=== PATIENT | male | born 1970 | race Two or more races ===

== ENCOUNTER 2019-05-09 00:16 | Emergency (ER) | payer SELFPAY ==
--- NOTE | 2019-05-09 02:17 | ER Document Report ---
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 courtney, cp, x 1 wk along with some neck pain. pain worse with movement. better with rest. no rall or trauma. 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 not worst courtney of life. not sudden in onset. has had similar courtney in the past. hasn't sought care until now. no changes in neurologic. no fevers. Pt denies any prior personal cardiac history. denies any family history of sudden or cardiac dz at a young age. no syncope. no palpitations. no hx of mi, cva, tia, or cad. no ripping or tearing sensation. denies any blood thinners. No prior history of blood clots. No recent long distance travel/immobilization, recent surgery, exogenous hormone use, hemoptysis, history of cancer, or calf pain/swelling. No prior history of arrhythmias. - ROS Systems Reviewed and Negative: Yes All other systems reviewed and negative - to include 10 systems, unless mentioned in the hpi. - DERM Skin Color: Normal Past Medical History - Social History Smoking Status: Never Smoker Family History: Reviewed & Not Pertinent Patient has suicidal ideation: No Patient has homicidal ideation: No Vertical Provider Document - CONSTITUTIONAL Notes: >>>> PHYSICAL_EXAM: GENERAL_APPEARANCE: well_nourished, alert, cooperative, no_acute_distress, no_obvious_discomfort. pleasant, smiling, speaking in full sentences, in no sign of pain or resp distress, VITALS: reviewed, see vital signs table. HEAD: no_swelling\tenderness on the head. normocephalic. atraumatic. no toney signs. no raccoons eyes. EARS: canals_clear_bilat, TMs_clear. EYES: PERRL, EOMI, conjunctiva_clear. no photophobia NOSE: no_nasal_discharge. MOUTH: (-)decreased moisture. THROAT: no_tonsilar_inflammation, no_airway_obstruction. no_lymphadenopathy NECK: supple, no_neck_tenderness other than over bilat paracervical muskulature, spasm noted. palpation here reproduces pts neck pain. no sign of central cord syndrome. no overlying skin changes, (-)thyromegaly. full rom. full strength. no jvd. no meningeal signs. BACK: no_back_tenderness. CHEST_WALL: no_chest_tenderness. no overlying skin changes LUNGS: no_wheezing, ctab (-)accessory muscle use, good air exchange bilatera l. HEART: normal_rate, normal_rhythm, no_murmur, ABDOMEN: normal_BS, soft, no_abd_tenderness, (-)guarding, (-)rebound, no_organomegaly, no distension or peritoneal signs. no cva ttp EXTREMITIES: strength 5/5 in all_extremities, good pulses in all_extremities, no_swelling\tenderness in the extremities, no_edema. full rom. normal gait. good pulses. brisk cap refill. 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 neg nolan sign NEURO: motor and sensation intact, cranial nerves 2-12 intact, cerebellar fxn intact SKIN: warm, dry, good_color, no_rash. MENTAL_STATUS: speech_clear, oriented_X_3, normal_affect, responds_ appropriately to questions. Course - Re-evaluation Re-evalutation: 05/09/19 06:44 labs neg. cxr neg per rad and reviewed by myself. ekg unremarkable per ed attending. heart score is a 2. he is perc neg. low risk for sah. no meningeal signs. no signs of central cord syndrome. neurononfocal. delta trop neg. On reexam, pt improved with tx listed. remained stable. nontoxic. well appearing. pain controlled. tolerating po. requesting to go home. Documentation achieved through voice recording which may lead to some occasiona l accidental typographical errors. Extensive efforts have been made to proof read documentation to make sure these are the least as possible. Category Date Time Status EKG Documentation ONCE Care 05/09/19 04:24 Completed EKG Documentation STAT Care 05/09/19 00:18 Completed EKG Documentation STAT Care 05/09/19 04:05 Completed CHEST 2 VIEWS [RAD] Stat Exams 05/09/19 02:14 Completed ALCOHOL [CHEM] Stat Lab 05/09/19 02:25 Completed CBC WITH DIFF [HEME] Stat Lab 05/09/19 02:25 Completed COMPREHENSIVE METABOLIC PANEL [CHEM] Stat Lab 05/09/19 02:25 Completed CREATINE KINASE MB [CHEM] Stat Lab 05/09/19 02:25 Completed CREATINE KINASE [CHEM] Stat Lab 05/09/19 02:25 Completed LIPASE [CHEM] Stat Lab 05/09/19 02:25 Completed MAGNESIUM [CHEM] Stat Lab 05/09/19 02:25 Completed PARTIAL THROMBOPLASTIN TIME [COAG] Stat Lab 05/09/19 03:50 Completed PROTHROMBIN TIME/INR [COAG] Stat Lab 05/09/19 03:50 Completed TROPONIN I [CHEM] Stat Lab 05/09/19 02:25 Completed TROPONIN I [CHEM] Timed Lab 05/09/19 04:29 Completed URINALYSIS [URIN] Stat Lab 05/09/19 02:20 Completed URINE CULTURE [MC] Stat Lab 05/09/19 02:20 Received Ketorolac Tromethamine [Toradol Inj/Pf 30 mg/1 ml Sdv] Med 05/09/19 04:06 Discontinued 30 mg IV NOW ONE EKG ER ONLY [ER] Stat Oth 05/09/19 Active EKG ER ONLY [ER] Stat Oth 05/09/19 Active - Vital Signs Vital signs: Temp Pulse Resp BP Pulse Ox 98 F 62 12 133/92 H 100 05/09/19 01:48 05/09/19 01:40 05/09/19 01:48 05/09/19 01:48 05/09/19 01:48 05/09/19 06:42 Temp Pulse Resp BP BP Pulse Ox 05/09/19 05:01 17 98 05/09/19 05:00 97.9 F 13 113/77 97 05/09/19 04:59 14 97 05/09/19 04:01 13 97 05/09/19 04:00 14 126/81 H 97 05/09/19 03:59 12 97 05/09/19 03:01 15 97 05/09/19 03:00 14 128/75 H 98 05/09/19 02:59 13 97 05/09/19 02:33 14 125/83 98 05/09/19 02:32 13 97 05/09/19 02:01 15 97 05/09/19 02:00 15 126/81 H 98 05/09/19 01:59 16 97 05/09/19 01:48 98 F 12 133/92 H 100 05/09/19 01:47 15 98 05/09/19 01:44 99 05/09/19 01:40 62 05/09/19 00:22 98.1 F 61 18 140/103 H 97 - Laboratory Result Diagrams: 05/09/19 02:25 05/09/19 02:25 Laboratory results interpreted by me: 05/09/19 06:42 Labs- Entire Visit 05/09/19 05/09/19 05/09/19 02:20 02:25 02:25 WBC 6.9 RBC 5.10 Hgb 14.8 Hct 43.0 MCV 84 MCH 29.0 MCHC 34.3 RDW 12.8 Plt Count 227 Lymph % (Auto) 28.9 [place] % (Auto) 7.4 Eos % (Auto) 5.8 Baso % (Auto) 0.5 Absolute Neuts (auto) 4.0 Absolute Lymphs (auto) 2.0 Absolute Monos (auto) 0.5 Absolute Eos (auto) 0.4 Absolute Basos (auto) 0.0 Seg Neutrophils % 57.4 PT INR APTT Sodium 139.7 Potassium 3.9 Chloride 106 Carbon Dioxide 26 Anion Gap 8 BUN 20 Creatinine 0.77 Est GFR ( Amer) > 60 Est GFR (MDRD) Non-Af > 60 Glucose 99 Calcium 9.3 Magnesium Total Bilirubin 0.6 Direct Bilirubin 0.1 Neonat Total Bilirubin Not Reportable Neonat Direct Bilirubin Not Reportable Neonat Indirect Bili Not Reportable AST 23 ALT 24 Alkaline Phosphatase 78 Creatine Kinase CK-MB (CK-2) Troponin I Total Protein 6.8 Albumin 4.1 Lipase Urine Color YELLOW Urine Appearance CLEAR Urine pH 5.0 Ur Specific [place] 1.025 Urine Protein NEGATIVE Urine Glucose (UA) NEGATIVE Urine Ketones NEGATIVE Urine Blood NEGATIVE Urine Nitrite NEGATIVE Urine Bilirubin NEGATIVE Urine Urobilinogen NEGATIVE Ur Leukocyte Esterase NEGATIVE Urine WBC (Auto) >182 Urine RBC (Auto) 32 Urine Bacteria (Auto) TRACE Squamous Epi Cells Auto <1 Urine Mucus (Auto) RARE Urine Ascorbic Acid NEGATIVE Serum Alcohol 05/09/19 05/09/19 05/09/19 02:25 02:25 03:50 WBC RBC Hgb Hct MCV MCH MCHC RDW Plt Count Lymph % (Auto) [place] % (Auto) Eos % (Auto) Baso % (Auto) Absolute Neuts (auto) Absolute Lymphs (auto) Absolute Monos (auto) Absolute Eos (auto) Absolute Basos (auto) Seg Neutrophils % PT 14.6 INR 1.13 APTT 39.6 H Sodium Potassium Chloride Carbon Dioxide Anion Gap BUN Creatinine Est GFR ( Amer) Est GFR (MDRD) Non-Af Glucose Calcium Magnesium 1.9 Total Bilirubin Direct Bilirubin Neonat Total Bilirubin Neonat Direct Bilirubin Neonat Indirect Bili AST ALT Alkaline Phosphatase Creatine Kinase 77 CK-MB (CK-2) 0.64 Troponin I < 0.012 Total Protein Albumin Lipase 105.0 Urine Color Urine Appearance Urine pH Ur Specific [place] Urine Protein Urine Glucose (UA) Urine Ketones Urine Blood Urine Nitrite Urine Bilirubin Urine Urobilinogen Ur Leukocyte Esterase Urine WBC (Auto) Urine RBC (Auto) Urine Bacteria (Auto) Squamous Epi Cells Auto Urine Mucus (Auto) Urine Ascorbic Acid Serum Alcohol < 10 05/09/19 04:29 WBC RBC Hgb Hct MCV MCH MCHC RDW Plt Count Lymph % (Auto) [place] % (Auto) Eos % (Auto) Baso % (Auto) Absolute Neuts (auto) Absolute Lymphs (auto) Absolute Monos (auto) Absolute Eos (auto) Absolute Basos (auto) Seg Neutrophils % PT INR APTT Sodium Potassium Chloride Carbon Dioxide Anion Gap BUN Creatinine Est GFR ( Amer) Est GFR (MDRD) Non-Af Glucose Calcium Magnesium Total Bilirubin Direct Bilirubin Neonat Total Bilirubin Neonat Direct Bilirubin Neonat Indirect Bili AST ALT Alkaline Phosphatase Creatine Kinase CK-MB (CK-2) Troponin I < 0.012 Total Protein Albumin Lipase Urine Color Urine Appearance Urine pH Ur Specific [place] Urine Protein Urine Glucose (UA) Urine Ketones Urine Blood Urine Nitrite Urine Bilirubin Urine Urobilinogen Ur Leukocyte Esterase Urine WBC (Auto) Urine RBC (Auto) Urine Bacteria (Auto) Squamous Epi Cells Auto Urine Mucus (Auto) Urine Ascorbic Acid Serum Alcohol - Diagnostic Test Radiology reviewed: Image reviewed, Reports reviewed Radiology results interpreted by id: 05/09/19 06:42 Chest X-Ray 05/09/19 02:14 IMPRESSION: No evidence of acute cardiopulmonary disease. - EKG Interpretation by Md EKG shows normal: Sinus rhythm Rate: Normal Rhythm: NSR - 60 bpm, no stemi, reviewed by dr melo When compared to previous EKG there are: No significant change Additional EKG results interpreted by id: 05/09/19 06:43 repeat EKG showed sinus at 58 bpm, no stemi, unremarkable and unchanged per review by dr melo. Discharge - Discharge Clinical Impression: Tension headache Chest pain Qualifiers: Chest pain type: unspecified Qualified Code(s): R07.9 - Chest pain, unspecified Cervical strain Qualifiers: Encounter type: initial encounter Qualified Code(s): S16.1XXA - Strain of mu scle, fascia and tendon at neck level, initial encounter Condition: Good Disposition: HOME, SELF-CARE Additional Instructions: Follow-up with PCP in 1 to 2 days. Return for any worsening symptoms. tylenol or motrin as needed for any pain or fever if not allergic. take the medication as prescribed. do not work, drive, operate machinery while taking the muscle relaxers. ice/heat to the area. Prescriptions: Methocarbamol [Robaxin 500 mg Tablet] 500 mg PO QID PRN #20 tablet PRN Reason: Muscle Spasms Referrals: MULUGETA,GROVER [NO LOCAL MD] - Follow up as needed DEANNE SPRING MD [HONORARY] - Follow up tomorrow
[2019-05-09 02:37] LABS: ABSOLUTE EOSINOPHILS # (AUTO) 0.4 10^3/uL (0.0-0.6); ABSOLUTE MONOCYTES (AUTO) 0.5 10^3/uL (0.1-1.4); BASOPHILS % (AUTO) 0.5 % (0-2); EOSINOPHILS % (AUTO) 5.8 % (0-6); HEMOGLOBIN 14.8 g/dL (13.5-17.0); LYMPHOCYTES % (AUTO) 28.9 % (13-45); MEAN CORPUSCULAR HGB CONC 34.3 g/dL (32.0-36.0); MEAN CORPUSCULAR VOLUME 84 fl (80-97); MONOCYTES % (AUTO) 7.4 % (3-13); PLATELET COUNT 227 10^3/uL (150-450); RED CELL DISTRIBUTION WIDTH 12.8 % (11.5-14.0); SEGMENTED NEUTROPHILS % (AUTO) 57.4 % (42-78); TOTAL CELLS COUNTED % (AUTO) 100 %; WHITE BLOOD COUNT 6.9 10^3/uL (4.0-10.5)
[2019-05-09 02:54] LABS: APPEARANCE,URINE CLEAR; BILIRUBIN,URINE NEGATIVE (NEGATIVE); COLOR,URINE YELLOW; GLUCOSE, URINE NEGATIVE (NEGATIVE); KETONES,URINE NEGATIVE (NEGATIVE); LEUKOCYTE ESTERASE,URINE NEGATIVE (NEGATIVE); NITRITE,URINE NEGATIVE (NEGATIVE); PROTEIN,URINE NEGATIVE (NEGATIVE); URINE SPECIFIC GRAVITY 1.025; UROBILINOGEN,URINE NEGATIVE mg/dL (<2.0)
[2019-05-09 02:57] LABS: CREATINE KINASE 77 U/L (55-170)
[2019-05-09 02:58] LABS: ALBUMIN 4.1 g/dL (3.5-5.0); ALKALINE PHOSPHATASE 78 U/L (38-126); ANION GAP 8 (5-19); ASPARTATE AMINO TRANSFERASE 23 U/L (17-59); BILIRUBIN,DIRECT 0.1 mg/dL (0.0-0.4); BILIRUBIN,TOTAL 0.6 mg/dL (0.2-1.3); BLOOD UREA NITROGEN 20 mg/dL (7-20); CALCIUM 9.3 mg/dL (8.4-10.2); CARBON DIOXIDE 26 mmol/L (22-30); CHLORIDE 106 mmol/L (98-107); GLUCOSE 99 mg/dL (75-110); POTASSIUM 3.9 mmol/L (3.6-5.0); TOTAL PROTEIN 6.8 g/dL (6.3-8.2)
--- NOTE | 2019-05-09 03:04 | RADIOLOGY REPORT (SQ) ---
XR CHEST 2 VIEWS EXAM DATE: 05/09/2019 2:14 AM CDT HISTORY: Chest pain. COMPARISON: None. FINDINGS: The heart size is within normal limits. No consolidation, pleural effusion, or pneumothorax is seen. The bony thorax is intact. IMPRESSION: No evidence of acute cardiopulmonary disease.
[2019-05-09 03:07] LABS: ALCOHOL < 10 mg/dL (NONE DETECTED)
[2019-05-09 03:10] LABS: CREATINE KINASE MB 0.64 ng/mL (<4.55)
[2019-05-09 03:11] LABS: TROPONIN I < 0.012 ng/mL
[2019-05-09 04:06] LABS: INTERNATIONAL RATION (INR) 1.13; PROTHROMBIN TIME 14.6 SEC (11.4-15.4)
[2019-05-09] MEDS ORDERED: KETOROLAC TROMETHAMINE INJ/PF 30 MG/1 ML SDV IV ONE (04:06)
[2019-05-09 04:07] LABS: PARTIAL THROMBOPLASTIN TIME 39.6 SEC (23.5-35.8)
[2019-05-09 07:57] VITALS: BP 115/78
--- NOTE | 2019-05-09 09:34 | EKG REPORT ---
SEVERITY:- ABNORMAL ECG - SINUS RHYTHM NONSPECIFIC INTRAVENTRICULAR CONDUCTION DELAY : Confirmed by: Renetta Dunn MD 09-May-2019 09:33:59
--- NOTE | 2019-05-09 09:34 | EKG REPORT ---
SEVERITY:- NORMAL ECG - SINUS RHYTHM : Confirmed by: Renetta Dunn MD 09-May-2019 09:33:55
== END 2019-05-09 07:50 | disposition home or self-care (01) ==
LOC: ER 00:16
DX: G44.209 Tension-type headache, unspecified, not intractable (principal); R07.9 Chest pain, unspecified; S16.1XXA Strain of muscle, fascia and tendon at neck level, initial encounter; X58.XXXA Exposure to other specified factors, initial encounter
CPT/HCPCS: 93005; 99285; 96374; 36415; 87086; 82553; 80307; 82550; 83690; 83735; 85025; 85610; 85730; 80053; 81001; 84484; 71046; 93010; J1885